=== PATIENT | male | born 1995 | race Caucasian/White ===

== ENCOUNTER 2017-03-02 21:15 | Emergency (ER) | payer BC ==
[~2017-03-02] VITALS: Ht 172.7 cm; Wt 77.1 kg
[2017-03-02 21:31] VITALS: BP_SYST 141
--- NOTE | 2017-03-02 21:59 | NUR ---
Patient to ER bed H1 to gown for evaluation. Side rails up. Report given to Maria C
--- NOTE | 2017-03-02 22:10 | NUR ---
[place] Germain [employer] at bedside examining patient
--- NOTE | 2017-03-02 22:10 | NUR ---
Pt brought by mother, A&Ox4, pt c/o hedache,nausea and neck pain after syncope episode, hit his head ,pt states he was smoking marihuana and drinking one beer before event, cap refill <3, ambulatory, skin pink and warm.
[2017-03-02] MEDS ORDERED: ONDANSETRON 4 MG ODT TAB PO ONE (22:15)
[2017-03-02] MEDS ORDERED: ACETAMINOPHEN 500 MG TABLET PO ONE (22:15)
[2017-03-02 23:45] VITALS: BP_SYST 131
--- NOTE | 2017-03-02 23:45 | NUR ---
Patient given written and verbal discharge instructions and verbalizes understanding. ER MD discussed with patient the results and treatment provided. Patient in stable condition. ID arm band removed. Rx of Tylenol Extra Strength given. Patient educated on pain management and to follow up with PMD. Pain Scale 2/10. Opportunity for questions provided and answered.
== END 2017-03-02 23:45 | disposition home or self-care (01) ==
LOC: SED 21:15
DX: S00.83XA Contusion of other part of head, initial encounter (principal); R55 Syncope and collapse; F12.10 Cannabis abuse, uncomplicated; W19.XXXA Unspecified fall, initial encounter; Y93.01 Activity, walking, marching and hiking; Y99.8 Other external cause status; Y92.89 Other specified places as the place of occurrence of the external cause
CPT/HCPCS: 70450; 99284; Q0162